=== PATIENT | female | born 1950 | race Caucasian/White ===

== ENCOUNTER 2016-03-08 18:41 | Emergency (ER) | payer OTHER, MEDICARE ==
[~2016-03-08] VITALS: Ht 165.1 cm; Wt 85.4 kg
[~2016-03-08 18:41] MED LIST: ARMOUR THYROID120 MG PO; ARMOUR THYROID15 MG PO; ARMOUR THYROID30 MG PO; ASPIR-LOW81 MG PO; ASPIRIN81 M2 PO; ATARAX,VISTARIL50 MG PO; ATIVAN1 MG PO; ATORVASTATIN CA80 MG PO; AZITHROMYCIN500 M1 PO; BENICAR40 MG PO; BRILINTA90 MG PO; BUSPAR10 MG PO; BUSPAR30 MG PO; BUSPAR5 MG PO; BUSPAR7.5 MG PO; BUSPIRONE HCL10 MG PO; CALCIUM CHEWS; CALCIUM500 M4 PO; COZAAR25 MG PO; DAILY VITAMIN1 EAC8 PO; EFFIENT10 MG PO; FISH OIL 1,0001 EAC7 PO; FISH OIL500 MG PO; FLEXERIL10 MG PO; KEFLEX500 MG PO; LEVOTHYROXINE25 MCG PO; LIPITOR40 MG PO; LISINOPRIL5 MG PO; LO-DOSE ASPIRIN81 M2 PO; LOPRESSOR100 M1 PO; MECLIZINE HCL12.5 M1 PO; MEDROL DOSEPAK4 MG PO; MELOXICAM15 MG PO; METOPROLOL SUC100 MG PO; MULTIVITAMIN1 EAC2 PO; NEURONTIN100 MG PO; NEURONTIN300 MG PO; ONE-A-DAY ESSE1 EAC1 PO; PLAVIX75 MG PO; PRAVASTATIN SOD20 MG PO; PREDNISONE10 MG PO; PRILOSEC20 MG PO; PROBIOTIC1 EAC1 PO; SHARK CARTILAG750 MG PO; SYNTHROID75 MCG PO; TOPROL XL100 MG PO; TOPROL XL25 MG PO; TOPROL XL50 MG PO; ULTRAM50 MG PO; VALSARTAN320 MG PO; VITAMIN C1000 MG PO; VITAMIN D35000 UNIT PO; VITAMIN D5000 UNIT PO; XANAX0.5 MG PO; ZOFRAN ODT8 MG PO; [UNRECOGNIZED DRUG - OTHER] PO
[2016-03-08 19:28] LABS: HEMATOCRIT 43.8 % (36.0-46.0); MCH 29.9 PG (29.0-34.0); MCV 87.8 FL (83-99); MEAN PLAT.VOLUME 10.5 uM^3 (9.5-12.4); PLATELET COUNT 214 K/uL (156-360); RBC DIS.WIDTH-CV 13.2 % (11.8-14.6); RBC DIS.WIDTH-SD 41.1 % (39-53); RED BLOOD COUNT 4.99 M/uL (3.80-5.20); WHITE BLOOD COUNT 7.5 K/uL (4.1-10.2)
[2016-03-08 19:33] LABS: ADD MIUA? YES; BILIRUBIN NEGATIVE; BLOOD NEGATIVE; COLOR YELLOW ((YELLOW)); GLUCOSE (STRIP) NEGATIVE; KETONES NEGATIVE; LEUKOCYTES SMALL; NITRITE NEGATIVE; PROTEIN (STRIP) NEGATIVE; UROBILINOGEN 0.2 MG/DL (0.2-1.0)
[2016-03-08 19:37] LABS: CHLORIDE 106 mEq/L (99-109); POTASSIUM 4.7 mEq/L (3.7-5.4); SODIUM 140 mEq/L (136-147)
[2016-03-08 19:40] LABS: GLUCOSE 110 mg/dL (70-99)
[2016-03-08 19:41] LABS: ANION GAP 9 MEQ/L (2-14)
[2016-03-08 19:42] LABS: TOTAL BILIRUBIN 0.2 mg/dL (0.0-1.0)
[2016-03-08 19:43] LABS: ALKALINE PHOSPHATASE 96 IU/L (3-129); GFR ESTIMATE (CALCULATED) 59 mL/min/
[2016-03-08 19:44] LABS: UREA NITROGEN (BUN) 23 mg/dL (9-23)
[2016-03-08 19:47] LABS: LIPASE 23 U/L (1.0-51.0)
[2016-03-08 20:22] LABS: BACTERIA NONE SEEN /HPF; CASTS NONE SEEN /LPF; CRYSTALS NONE SEEN; EPITHELIAL CELLS RARE /HPF; MUCUS 2+ /LPF; RED BLOOD CELLS 0-5 /HPF (0-5); UCUL ADDED? NO; WHITE BLOOD CELLS 0-5 /HPF (0-5)
[2016-03-08 20:24] LABS: TROP-I INTERPRETATION NEGATIVE; TROPONIN-I < 0.01 ng/mL (0.0-0.30)
[2016-03-08] MEDS ORDERED: SKELAXIN800 MG PO (21:18)
[2016-03-08 23:28] VITALS: BP 188/85
== END 2016-03-08 22:25 | disposition home or self-care (01) ==
LOC: EME 18:41
DX: R10.9 Unspecified abdominal pain (principal); M54.89 Other dorsalgia; R11.0 Nausea; I10 Essential (primary) hypertension; E03.9 Hypothyroidism, unspecified; Z95.5 Presence of coronary angioplasty implant and graft; Z79.02 Long term (current) use of antithrombotics/antiplatelets; Z79.82 Long term (current) use of aspirin
CPT/HCPCS: 74176; 80053; 81003; 83690; 84484; 85027; 93005; 99281; 99284

== ENCOUNTER 2017-05-26 13:53 | Emergency (ER) | payer OTHER, MEDICARE ==
[~2017-05-26] VITALS: Ht 165.1 cm; Wt 85.9 kg
[~2017-05-26 13:53] MED LIST changes: +SKELAXIN800 MG PO
[2017-05-26 14:22] LABS: HEMATOCRIT 44.5 % (36.0-46.0); HEMOGLOBIN 15.2 G/DL (11.9-15.5); MCH 31.1 PG (29.0-34.0); MCHC 34.2 G/DL (30.0-36.0); PLATELET COUNT 231 K/uL (156-360); RBC DIS.WIDTH-CV 12.8 % (11.8-14.6); RBC DIS.WIDTH-SD 42.3 % (39-53); RED BLOOD COUNT 4.89 M/uL (3.80-5.20); WHITE BLOOD COUNT 6.8 K/uL (4.1-10.2)
[2017-05-26 14:35] LABS: CHLORIDE 104 mEq/L (99-109); SODIUM 138 mEq/L (136-147)
[2017-05-26 14:37] LABS: GLUCOSE 99 mg/dL (70-99)
[2017-05-26 14:41] LABS: CREATININE 0.9 mg/dL (0.6-1.3); GFR ESTIMATE (CALCULATED) > 59 mL/min/
[2017-05-26 14:42] LABS: UREA NITROGEN (BUN) 18 mg/dL (9-23)
[2017-05-26 14:50] LABS: TROP-I INTERPRETATION NEGATIVE; TROPONIN-I < 0.01 ng/mL (0.0-0.30)
[2017-05-26 15:35] LABS: THYROTROPIN (TSH) 1.3 MIU/L (0.4-5.5)
[2017-05-26 18:14] VITALS: BP 100/50
== END 2017-05-26 18:14 | disposition home or self-care (01) ==
LOC: EME 13:53
PROVIDERS: Emergency Medicine
DX: R22.43 Localized swelling, mass and lump, lower limb, bilateral (principal); R68.84 Jaw pain; I25.10 Atherosclerotic heart disease of native coronary artery without angina pectoris; I10 Essential (primary) hypertension; E03.9 Hypothyroidism, unspecified; I25.2 Old myocardial infarction; Z95.5 Presence of coronary angioplasty implant and graft; J45.909 Unspecified asthma, uncomplicated; K21.9 Gastro-esophageal reflux disease without esophagitis; F32.9 Major depressive disorder, single episode, unspecified; F41.9 Anxiety disorder, unspecified; Z88.8 Allergy status to other drugs, medicaments and biological substances
CPT/HCPCS: 71046; 80048; 83880; 84443; 84484; 85027; 85379; 93005; 99281; 99284